=== PATIENT | female | born 1995 | race Caucasian/White ===

== ENCOUNTER 2017-12-29 04:31 | Inpatient (IN) | payer OTHER ==
[2017-12-29 05:00] VITALS: BMI 31.8
[2017-12-29] MEDS ORDERED: Ondansetron HCl/PF 4 MG/2 ML Vial IVP PRN ×3 (07:18→19:44)
[2017-12-29] MEDS ORDERED: Ibuprofen 800 MG TAB PO PRN (07:18)
[2017-12-29] MEDS ORDERED: NS / Oxytocin 40 units/1000ml 1,000 ML IV PRN (07:18)
[2017-12-29] MEDS ORDERED: Promethazine HCl 25 MG/ML VIAL IM PRN ×2 (07:18→09:11)
[2017-12-29] MEDS ORDERED: Butorphanol Tartrate 1 MG/ML VIAL SLOW IVP PRN (07:18)
[2017-12-29] MEDS ORDERED: HYDROcodone/Acetaminophen 5/325 mg Tablet PO PRN ×4 (07:18→19:44)
[2017-12-29] MEDS ORDERED: NS w/ Oxytocin 10 units 500 ML IV SCH (07:18)
[2017-12-29] MEDS ORDERED: Lactated Ringer's 1,000 ML IV SCH (07:18)
[2017-12-29] MEDS ORDERED: Lidocaine 1% (PF) 30 ML VIAL SC PRN (07:18)
[2017-12-29] MEDS: Lactated Ringer's 1,000 ML IV SCH ×2 (07:45→09:25)
[2017-12-29 07:48] LABS: Hemoglobin 9.8 g/dL (12.0-16.0); Mean Corpuscular HGB CONC 35.8 g/dL (32.0-36.0); Mean Corpuscular Hemoglobin 29.1 pg (27.0-31.0); Mean Corpuscular Volume 81.3 fL (78.0-98.0); Mean Platelet Volume 7.4 fL (7.4-10.4); Platelet Count 159 thou/uL (130-400); RBC Distribution Width 13.5 % (11.5-14.5); Red Blood Cell (RBC) Count 3.38 mill/uL (4.20-5.40); White Blood Cell (WBC) Count 6.6 thou/uL (4.8-10.8)
[2017-12-29] MEDS ORDERED: DISCONTINUE ALL PREVIOUS NARCOTICS FS SCH (08:30)
[2017-12-29] MEDS ORDERED: Bupivacaine 0.75% 13.4 ML, fentaNYL Citrate/PF 400 MCG in Sodium Chloride 0.9% 78.6 ML EPIDURAL SCH (08:30)
[2017-12-29 08:37] LABS: HBSAg Index 0.16 S/CO (0-0.99); Hep B Surf Ag Non-Reactive S/CO (NonReactive); Syphilis Antibody Nonreactive (Nonreactive); Syphilis Antibody Index 0.04 S/CO (<1.00 Non-Reactive)
[2017-12-29] MEDS ORDERED: ePHEDrine/0.9% NaCl/PF SYRINGE 50 mg/10 ml SLOW IVP PRN (09:11)
[2017-12-29] MEDS ORDERED: Naloxone HCl 0.4 mg/ml Vial IVP PRN ×2 (09:11)
[2017-12-29] MEDS ORDERED: Acetaminophen 325 MG TAB PO PRN (09:11)
[2017-12-29] MEDS ORDERED: Lactated Ringer's 500 ML IV PRN (09:11)
[2017-12-29] MEDS ORDERED: diphenhydrAMINE 50 MG/ML VIAL IVP PRN (09:11)
[2017-12-29] MEDS ORDERED: Eucerin (Mineral Oil/Petrolatum,White) 30 gm Jar TOP PRN (09:11)
[2017-12-29] MEDS ORDERED: Communication Order-Pharmacy FS SCH (09:15)
[2017-12-29] MEDS ORDERED: fentaNYL Citrate/PF 400 MCG, Bupivacaine 0.5% 20 ML in Sodium Chloride 0.9% 72 ML EPIDURAL SCH (09:15)
[2017-12-29] MEDS ORDERED: Sodium Chloride 0.9% 100 ML ONE (09:43)
[2017-12-29] MEDS ORDERED: Penicillin G Potassium 5 MILL.UNITS VIAL ONE (09:43)
--- NOTE | 2017-12-29 10:10 | PDOC.LDHP ---
Labor and Delivery H&P Chief complaint: contractions, loss of fluid HPI: 22yo at 39w1d by LMP for SROM and contractions this morning. Current gestational age (weeks): 39 Due date: 01/04/18 Dating criteria: last menstrual period Grav: 3 Para: 1 Current complications: none Abnormal US findings: No Past Medical History: denies Current medications: pre- vitamins, iron Previous surgical history: none Allergies/Adverse Reactions: Allergies Allergy/AdvReac Type Severity Reaction Status Date / Time erythromycin base Allergy Rash Verified 11/20/16 17:43 Social history: none - Physical Exam Vital signs reviewed and normal: yes General: NAD Heart: RRR Lungs: CTAB Abdomen: gravid Extremeties: no edema FHT: category 1 [place] contractions every: 3min - Vaginal Exam cm dilated: 5 Effacement: 90% Station: -1 (light mec) - OB Labs Blood type: B RH: positive Antibody Screen: negative HIV: negative RPR: negative HEPSAg: negative GBS: positive Urine drug screen: negative Rubella: immune - Assessment L&D Assessment: term patient in labor - Plan Plan: admit to L&D, labor augmentation if indicated, GBS antibiotic prophylaxis , informed consent obtained, anesthesia consult for pain management
[2017-12-29] MEDS ORDERED: Penicillin G Potassium 5 MILL.UNITS in Sodium Chloride 0.9% 100 ML IVPB SCH (10:15)
[2017-12-29] MEDS ORDERED: Bupivacaine/Epinephrine 0.25% 30 ML VIAL ONE (13:40)
[2017-12-29] MEDS: Pen G 2.5 MILL.UNITS/50 ML BAG IVPB SCH ×2 (13:59→22:13)
[2017-12-29] MEDS ORDERED: Oxytocin 10 UNITS/ML VIAL ONE (15:38)
--- NOTE | 2017-12-29 15:44 | PDOC.OPDEL ---
OB Operative/Delivery Note Delivery Dr/Surgeon: Jered Assist: n/a Pre-Delivery Diagnosis: active labor Procedure/Post Delivery Dx: spontaneous vaginal delivery Weeks gestation: 39 Anesthesia: epidural - Findings A Sex: female - 1 min: 9 - 5 min: 9 - Additional Findings/Plan Placenta delivered: spontaneous Repaired Obstetrical Laceration: 1st degree (repaired with 2-0 vicryl for hemostasis) Estimated blood loss: 185 Post delivery plan: routine recovery
[2017-12-29] MEDS ORDERED: Benzocaine/Menthol 20-0.5% 60 ML CAN TOP PRN (19:44)
[2017-12-29] MEDS ORDERED: Preparation H Ointment 28 GM TUBE PR PRN (19:44)
[2017-12-29] MEDS ORDERED: diphenhydrAMINE 25 MG CAP PO PRN (19:44)
[2017-12-29] MEDS ORDERED: Bisacodyl 10 MG SUPP PR PRN (19:44)
[2017-12-29] MEDS ORDERED: Milk Of Magnesia 30 ML UDCUP PO PRN (19:44)
[2017-12-29] MEDS ORDERED: NS / Oxytocin 40 units/1000ml 1,000 ML IV SCH (19:44)
[2017-12-29] MEDS ORDERED: Lanolin Ointment 7 GM TUBE TOP PRN (19:44)
[2017-12-29] MEDS: Docusate Calcium (SURFAK) 240 MG CAP PO SCH (22:06)
[2017-12-29] MEDS: Ibuprofen 800 MG TAB PO SCH (22:06)
[2017-12-30] MEDS: Ibuprofen 800 MG TAB PO SCH (06:25)
[2017-12-30] MEDS ORDERED: Ferrous Sulfate 325 MG TAB PO SCH (08:00)
--- NOTE | 2017-12-30 08:17 | PDOC.PP ---
Post Progress Note Post Day #: 1 PO intake tolerated: yes Flatus: yes Ambulation: yes Vital Signs (12 hours) Temp Pulse Resp BP BP Pulse Ox 12/30/17 08:01 97.8 F 71 20 97/56 L 12/30/17 04:17 97.8 F 63 18 103/55 L 99 12/30/17 00:12 98.4 F 63 18 103/54 L 98 12/29/17 20:20 98.1 F 61 22 H 115/58 L 100 Weight Weight 163 lb - Physical Examination General: NAD Cardiovascular: RRR Respiratory: non-labored breathing Abdominal: no distention Fundus firm & at: umb Skin: no rash Psychiatric: normal affect Result Diagrams: 12/29/17 07:39 Additional Labs: Post Labs Blood Type B POSITIVE 12/29/17 07:39 Hep Bs Antigen Non-Reactive S/CO (NonReactive) 12/29/17 07:39 - Assessment/Plan PPD1 s/p TSVD VSSAF Doing well, bottlefeeding, appropriate lochia Mild anemia, iron def, cont iron and pnv on DC Rh pos RImm DC home FU 6wk
[2017-12-30] MEDS ORDERED: Prenatal Vitamin 1 TAB PO SCH (09:00)
[2017-12-30] MEDS ORDERED: Adacel (T-DAP) 0.5 ML VIAL IM ONE (09:00)
[2017-12-30] MEDS: Docusate Calcium (SURFAK) 240 MG CAP PO SCH (10:52)
[2017-12-30 12:08] VITALS: BP 120/62; TEMP 98.2
== END 2017-12-30 17:20 | disposition home or self-care (01) | DRG 775 ==
LOC: L&D/OP 04:31 → L&D 07:40 → 3SE 18:47
PROVIDERS: ADMIT Student in an Organized Health Care Education/Training Program; ATTEND Student in an Organized Health Care Education/Training Program
PROC: 10E0XZZ Delivery of Products of Conception, External Approach (ICD-10-PCS; principal; 2017-12-29)
PROC: 0HQ9XZZ Repair Perineum Skin, External Approach (ICD-10-PCS; 2017-12-29)
DX: O77.0 Labor and delivery complicated by meconium in amniotic fluid (principal); Z37.0 Single live birth; Z3A.39 39 weeks gestation of pregnancy; O99.824 Streptococcus B carrier state complicating childbirth; O70.0 First degree perineal laceration during delivery
CPT/HCPCS: 51702; 85027; 86780; 86850; 86900; 86901; 87340; 99285; J2540; J2590; J3010; J7050

== ENCOUNTER 2022-08-12 10:30 | Outpatient (CLI) | payer OTHER | END 2022-08-12 10:31 | disposition home or self-care (01) | LOC: BICULT 10:30 | PROVIDERS: ATTEND Advanced Practice Midwife | DX: Z34.92 Encounter for supervision of normal pregnancy, unspecified, second trimester (principal); Z3A.21 21 weeks gestation of pregnancy | CPT/HCPCS: 76805 ==